=== PATIENT | male | born 1975 | race Caucasian/White ===

== ENCOUNTER → 2019-04-13 | Outpatient (CLI) | payer OTHER ==
--- NOTE | 2019-04-13 13:40 | REP ---
WHOLE BODY RADIONUCLIDE BONE SCAN: HISTORY: Shoulder and neck pain. Tingling. Rule out bone lesion. TECHNIQUE: 22.0 mCi of technetium 99m MDP is injected and standard whole body bone scan imaging is acquired. FINDINGS: There is a normal distribution of skeletal tracer with uptake in bilateral kidneys and in the urinary bladder. There is mild increased uptake in the right midfoot at what appears to be the talonavicular articulation. This is consistent with arthropathy. Skeletal tracer distribution is otherwise normal. Shoulder uptake is normal and symmetric. IMPRESSION: Slightly asymmetric increased uptake in the right midfoot consistent with midfoot arthropathy. Otherwise negative radionuclide bone scan. Electronically Signed by Jero Dickerson MD 04/13/2019 03:52 P
== END ==
LOC: M RAD 08:03
PROVIDERS: ATTEND Orthopaedic Surgery
DX: M75.41 Impingement syndrome of right shoulder (principal); G89.29 Other chronic pain; R20.2 Paresthesia of skin
CPT/HCPCS: 36415; 78306; 86335; A9503

== ENCOUNTER → 2020-06-09 | Outpatient (CLI) | payer OTHER ==
[~2020-06-09] MED LIST: ISOVUE-300 61% 50ML VIAL As Ordered ONE; PROHANCE 279.3MG/ML 5ML VIAL As Ordered ONE
--- NOTE | 2020-06-09 10:11 | REP ---
INDICATION: IMPINGEMENT SYNDROME RT SHOULDER. COMPARISON: Comparison radionuclide bone scan April 13, 2019.. TECHNIQUE: The injection procedure is performed and dictated separately. Pre and post intra-articular gadolinium enhanced saline injected imaging is acquired. Imaging planes include axial, oblique coronal, oblique sagittal and ABER projection images. T1 and T2-weighted scans are included with and without fat saturation. FINDINGS: Glenohumeral and acromioclavicular joints are normally aligned. Cortical and medullary bone signal intensity is normal. There is mild osteoarthritic hypertrophy of the AC joint. Pre-injection imaging shows some increased signal intensity near the genu of the biceps tendon consistent with tendinosis. It is located in the bony bicipital groove and is otherwise intact. The subscapularis and infraspinatus tendons appear intact. There is mild increased signal intensity on oblique coronal T1 weighted scans in the distal supraspinatus tendon which may reflect tendinosis. Post injection imaging shows good filling and enhancement of the right glenohumeral articulation. No anterior or posterior labral tear is appreciated. The superior labrum appears intact as well. Fat sat T1 weighted post injection imaging shows no evidence of focal rotator cuff tear. No articular cartilage lesion is appreciated. ABER images demonstrate intact anterior cartilaginous labrum. IMPRESSION: No evidence of labral tear. Mild tendinosis changes in the biceps at tendon and distal supraspinatus tendon. Mild AC joint hypertrophy. <Electronically signed by Jonh Dickerson > 06/09/20 [id number]
--- NOTE | 2020-06-09 10:37 | REP ---
INDICATION: IMPINGEMENT SYNDROME RT SHOULDER. COMPARISON: None TECHNIQUE: The procedure was performed by Loly Harper [facility], under the direct supervision of Dr. Dickerson. The benefits and risks of the procedure were explained to the patient, and an informed consent was obtained. Directly prior to the start of the procedure, a formal time-out was completed in the procedure room. The right glenohumeral joint space was localized using fluoroscopic guidance. The skin was prepped and draped in a sterile fashion. Approximately 5 mL of 1% Lidocaine 10 mg/ml was used as a local anesthetic. Using fluoroscopic guidance, a #22 gauge spinal needle was inserted and advanced into the right glenohumeral joint space. Approximately 1 mL of Isovue 300 was injected to verify placement. Twelve mL of a solution containing 20 mL of sterile saline and 0.15 mL of ProHance was injected into the joint space. The needle was removed and the patient was taken to MRI for post procedural imaging. FINDINGS: The patient tolerated the procedure well and there were no immediate complications. IMPRESSION: Fluoroscopic guided MRI arthrogram injection. 0.1 minutes of fluoroscopy time was utilized for this procedure. Some fluoroscopic images are performed with last image hold technology. These images require no additional radiation. <Electronically signed by Loly Harper > 06/09/20 0913 <Electronically signed by Jonh Dickerson > 06/09/20 [id number]
== END ==
LOC: M RADPRO 06:28
PROVIDERS: ATTEND Physician Assistant Surgical
DX: M75.41 Impingement syndrome of right shoulder (principal)
CPT/HCPCS: 23350; 73223; 77002; A9576; Q9967

== ENCOUNTER → 2022-01-28 | Outpatient (CLI) | payer OTHER ==
[~2022-01-28] MED LIST changes: +BUSP10TA PO; -ISOVUE-300 61% 50ML VIAL As Ordered ONE; +PANT20TA6 PO; -PROHANCE 279.3MG/ML 5ML VIAL As Ordered ONE; +ROSU40TA4 PO; +ZOLO100T PO
== END ==
LOC: M LABSMTC 10:50
PROVIDERS: ATTEND Anesthesiology
DX: Z01.812 Encounter for preprocedural laboratory examination (principal); Z11.52 Encounter for screening for COVID-19

== ENCOUNTER 2022-01-31 08:22 | Day surgery (SDC) | payer OTHER ==
[~2022-01-31] VITALS: Ht 190.5 cm; Wt 126.1 kg
[~2022-01-31 08:22] MED LIST changes: +NS 1,000 ML IV ONE
[2022-01-31] MEDS ORDERED: LIDOCAINE 2% 100MG/5ML SDV (FOR ANES.) As Ordered ONE (09:19)
[2022-01-31] MEDS ORDERED: propofoL 200 MG/20 ML VIAL As Ordered ONE ×2 (09:19→09:54)
[2022-01-31 10:25] VITALS: BP 122/96
== END 2022-01-31 10:32 | disposition home or self-care (01) ==
LOC: M SDC 08:22
PROVIDERS: ATTEND Internal Medicine Gastroenterology
DX: Z12.11 Encounter for screening for malignant neoplasm of colon (principal); K64.0 First degree hemorrhoids; K22.89 Other specified disease of esophagus; K44.9 Diaphragmatic hernia without obstruction or gangrene; Z79.02 Long term (current) use of antithrombotics/antiplatelets; Z79.1 Long term (current) use of non-steroidal anti-inflammatories (NSAID); Z79.899 Other long term (current) drug therapy; G47.30 Sleep apnea, unspecified; Z99.89 Dependence on other enabling machines and devices; I10 Essential (primary) hypertension; E78.00 Pure hypercholesterolemia, unspecified; F32.9 Major depressive disorder, single episode, unspecified; F41.9 Anxiety disorder, unspecified; F43.10 Post-traumatic stress disorder, unspecified
CPT/HCPCS: 43239; 88305; G0121

== ENCOUNTER → 2022-04-11 | Outpatient (CLI) | payer OTHER ==
[~2022-04-11] MED LIST changes: -NS 1,000 ML IV ONE
== END ==
LOC: M RAD 07:27
PROVIDERS: ATTEND Nurse Practitioner Family
DX: R19.09 Other intra-abdominal and pelvic swelling, mass and lump (principal)

== ENCOUNTER → 2022-06-21 | Outpatient (CLI) | payer OTHER ==
[~2022-06-21] MED LIST changes: +GASTROGRAFIN SOLUTION 30ML As Ordered ONE; +ISOVUE-370 76% 100ML VIAL As Ordered ONE
== END ==
LOC: M RAD 13:16
PROVIDERS: ATTEND Internal Medicine
DX: R10.11 Right upper quadrant pain (principal)
CPT/HCPCS: 74178; Q9963; Q9967

== ENCOUNTER 2022-07-10 10:26 | Emergency (ER) | payer OTHER ==
[~2022-07-10] VITALS: Ht 190.5 cm; Wt 130.0 kg
[~2022-07-10 10:26] MED LIST changes: -GASTROGRAFIN SOLUTION 30ML As Ordered ONE; -ISOVUE-370 76% 100ML VIAL As Ordered ONE
[2022-07-10] MEDS ORDERED: KETOROLAC 60MG 2ML VIAL IM ONE (12:00)
[2022-07-10 12:34] LABS: BASO # 0.1 10^3/uL (0.0-0.2); BASO % 1.3 % (0.0-1.0); EOS # 0.2 10^3/uL (0.0-0.5); EOS % 2.3 % (0.0-3.0); HEMATOCRIT 45.3 % (42.0-52.0); HEMOGLOBIN 15.7 g/dl (13.5-17.5); LYMPH % 26.5 % (24.0-44.0); MEAN CORPUSCULAR HEMOGLOBIN 30.7 pg (27.0-33.0); MEAN CORPUSCULAR HGB CONC 34.7 g/dl (32.0-36.5); MEAN CORPUSCULAR VOLUME 88.5 fl (80.0-96.0); MONO # 0.4 10^3/uL (0.0-0.8); MONO % 5.9 % (2.0-8.0); NEUTROPHILS # 4.8 10^3/uL (1.5-8.5); NEUTROPHILS % 63.7 % (36.0-66.0); PLATELET COUNT, AUTOMATED 202 10^3/uL (150-450); RED BLOOD COUNT 5.12 10^6/uL (4.30-6.10); WHITE BLOOD COUNT 7.5 10^3/uL (4.0-10.0)
[2022-07-10] MEDS ORDERED: KETOROLAC 30 MG/ML 1ML VIAL IV ONE (12:35)
[2022-07-10 12:50] LABS: ERYTHROCYTE SEDIMENTATION RATE 16 mm/hr (0-15)
[2022-07-10 12:56] LABS: C REACTIVE PROTEIN QUANTITATIV 0.7 MG/DL (<1.0)
[2022-07-10 12:58] LABS: URIC ACID 5.1 MG/DL (3.7-9.2)
[2022-07-10] MEDS ORDERED: COLC0.6T47 PO (14:11)
[2022-07-10] MEDS ORDERED: INDO50CA91 PO (14:11)
[2022-07-10] MEDS ORDERED: COLCHICINE 0.6 MG TABLET PO ONE (14:15)
[2022-07-10 14:36] VITALS: BP 139/83
== END 2022-07-10 14:39 | disposition home or self-care (01) ==
LOC: M ED 10:26
DX: R22.41 Localized swelling, mass and lump, right lower limb (principal); M25.571 Pain in right ankle and joints of right foot; I10 Essential (primary) hypertension; G47.33 Obstructive sleep apnea (adult) (pediatric); M10.9 Gout, unspecified; Z79.899 Other long term (current) drug therapy; Z79.83 Long term (current) use of bisphosphonates
CPT/HCPCS: 80047; 84550; 85025; 85652; 86140; 93971; 96374; 99284; J1885